=== PATIENT | female | born 1995 | race Caucasian/White ===

== ENCOUNTER → 2022-03-15 | Outpatient (CLI) | payer BC ==
--- NOTE | 2022-03-16 09:39 | MR ---
EXAMINATION TYPE: MR MRCP DATE OF EXAM: 03/15/2022 COMPARISON: Outside Ultrasound abdomen limited August 12, 2021 HISTORY: Rt upper quadrant pain, Disease of gallbladder Standard multiplanar, multisequence MRI departmental protocol Multiplanar, multisequence images of the abdomen were acquired without contrast. Diffusion weighted i maging was performed. FINDINGS: Evaluation slightly suboptimal as patient has difficulty holding breath. Liver/gallbladder/biliary system: Liver is normal in size with 6 mm round T2 hyperintense lesion zander nal image 10 and a few additional smaller round T2 hyperintense lesions right hepatic lobe axial imag e 38 and in the periphery on axial image 30 FAVORING benign thin-walled cysts. Gallbladder has no int raluminal gallstones. No abnormal wall thickening or surrounding fluid. Pancreas is normal in size. P ossible 1-2 punctate thin-walled cysts in the head coronal image 13 measuring 3 mm or smaller. Pancre atic duct identified without abnormal dilatation. MRCP images show possible partial duplication near the ampulla, or more likely partial visualization of the accessory duct. No intrahepatic or extrahepa tic biliary dilatation. Normal appearance just before the ampulla Other: Lung bases are clear. The spleen and both kidneys appear within normal limits. No suspicious s mall or large bowel dilatation. No intra-abdominal ascites. Osseous structures are intact. IMPRESSION: No gallstones or ultrasound evidence for acute cholecystitis. No biliary dilatation noted .
== END | disposition home or self-care (01) ==
LOC: RADMRIMAIN 07:26
PROVIDERS: ATTEND Surgery
DX: K82.8 Other specified diseases of gallbladder (principal)
CPT/HCPCS: 74181